=== PATIENT | female | born 1965 | race Two or more races ===

== ENCOUNTER 2017-02-16 22:57 | Emergency (ER) | payer MEDICAID ==
[~2017-02-16] VITALS: Ht 165.1 cm; Wt 90.7 kg
--- NOTE | 2017-02-16 23:58 | NUR ---
PT BIB FAMILY, [facility]BUALT[facility] TO ER BED 9 C/O RIGHT FLANK PAIN SINCE 1999, TODAY. PT ALSO STATES PAIN WITH URINATION. PT AOX4 RR EVEN AND UNLABORED. NO SOB NOTED. NAD NOTED. NO NVD AT THIS TIME. PT GOWNED AND PLACED ON MONITOR WAITING FOR MD PEREZ.
[2017-02-17 00:10] LABS: BASOPHILS % (AUTO) 0.2 % (0.0-2.0); EOSINOPHILS # (AUTO) 0.1 /CMM (0.0-0.7); EOSINOPHILS % (AUTO) 0.7 % (0.0-6.0); HEMATOCRIT 41 % (33-45); HEMOGLOBIN 13.8 g/dL (11.5-14.8); LYMPHOCYTES # (AUTO) 1.6 /CMM (0.8-4.8); LYMPHOCYTES % (AUTO) 11.7 % (20.0-44.0); MEAN CORPUSCULAR HEMOGLOBIN 31 PG (26.0-33.0); MEAN CORPUSCULAR HGB CONC 34 g/dl (31.0-36.0); MEAN CORPUSCULAR VOLUME 91 fL (82-100); MONOCYTES # (AUTO) 0.6 /CMM (0.1-1.30); MONOCYTES % (AUTO) 4.4 % (2.0-12.0); NEUTROPHILS # (AUTO) 11.3 /CMM (1.8-8.9); PLATELET COUNT (AUTO) 361 /CMM (150-450); RED BLOOD CELL COUNT(AUTO) 4.45 MIL/uL (4.0-5.2); WHITE BLOOD COUNT (AUTO) 13.6 K/uL (4.3-11.0)
[2017-02-17 00:12] LABS: APPEARANCE,URINE SL CLOUDY (CLEAR); BILIRUBIN,URINE NEGATIVE (NEGATIVE); BLOOD, URINE 2+ Ery/uL (NEGATIVE); COLOR,URINE YELLOW (YELLOW); KETONES,URINE NEGATIVE (NEGATIVE); LEUKOCYTE ESTERASE ,URINE NEGATIVE (NEGATIVE); NITRITE, URINE NEGATIVE (NEGATIVE); PROTEIN,URINE NEGATIVE (NEGATIVE); UGLUCOSE NEGATIVE (NEGATIVE); UROBILINOGEN,URINE 0.2 EU/dL (0.2)
[2017-02-17 00:21] LABS: ADD URINE CULTURE YES; BACTERIA,URINE 2+ /HPF (None Seen); MUCUS,URINE Moderate /LPF (None Seen); PREGNANCY TEST URINE QUAL NEGATIVE (NEGATIVE); SQUAMOUS EPITHELIAL CELL,UR Moderate /HPF (None Seen); WBC,URINE 0-2 /HPF (0-3)
[2017-02-17 00:28] LABS: CREATININE 0.8 mg/dL (0.6-1.3); POTASSIUM 3.7 mmol/L (3.5-5.1)
--- NOTE | 2017-02-17 01:48 | NUR ---
PT TO CT.
--- NOTE | 2017-02-17 01:56 | NUR ---
PT RETURNED FROM CT.
--- NOTE | 2017-02-17 02:25 | NUR ---
CINNAMON GRINDER MARSII AT BEDSIDE SPEAKING TO PT REGARDING RESULTS.
--- NOTE | 2017-02-17 02:29 | NUR ---
Patient discharged to home in stable condition. Written and verbal after care instructions given. Patient verbalizes understanding of instruction. ambulatory with a steady gait
[2017-02-17 02:30] VITALS: BP 126/78
== END 2017-02-17 02:31 | disposition home or self-care (01) ==
LOC: ER 22:57
DX: R10.9 Unspecified abdominal pain (principal)
CPT/HCPCS: 36415; 80048-TC; 81000-TC; 84703-TC; 85025-TC; A4606; Z7610

== ENCOUNTER 2022-03-14 17:04 | Emergency (ER) | payer MEDICAID ==
[~2022-03-14] VITALS: Ht 167.6 cm; Wt 99.8 kg
--- NOTE | 2022-03-14 17:04 | NUR ---
BIBS C/O COUGH AND CONGESTION THAT WORSENS AT NIGHT. PT BLOOD PRESSURE AND HEART RATE ELEVATED. MD AWARE.
--- NOTE | 2022-03-14 18:56 | NUR ---
RAPID COVID AND FLU TEST COLLECTED AND SENT
[2022-03-14 19:25] LABS: CALCIUM, SERUM 8.8 mg/dL (8.5-10.1); CARBON DIOXIDE 28 mmol/L (21-32); CHLORIDE 102 mmol/L (98-107); CREATININE 0.7 mg/dL (0.6-1.3); GLUCOSE 117 mg/dL (74-106); POTASSIUM 4.1 mmol/L (3.5-5.1); SODIUM SERUM 139 mmol/L (136-145); UREA NITROGEN, BLOOD 10 mg/dL (7-18)
[2022-03-14 19:58] LABS: BASOPHILS % (AUTO) 0.4 % (0.0-2.0); EOSINOPHILS % (AUTO) 1.5 % (0.0-6.0); HEMATOCRIT 44 % (33-45); HEMOGLOBIN 14.5 g/dL (11.5-14.8); LYMPHOCYTES # (AUTO) 1.2 K/uL (0.8-4.8); LYMPHOCYTES % (AUTO) 13.7 % (20.0-44.0); MEAN CORPUSCULAR HGB CONC 33 g/dl (31.0-36.0); MEAN CORPUSCULAR VOLUME 91 fL (82-100); MONOCYTES # (AUTO) 0.5 K/uL (0.1-1.30); MONOCYTES % (AUTO) 5.9 % (2.0-12.0); NEUTROPHILS # (AUTO) 6.9 K/uL (1.8-8.9); NEUTROPHILS % (AUTO) 78.5 % (43.0-81.0); PLATELET COUNT (AUTO) 320 K/uL (150-450); RED BLOOD CELL COUNT(AUTO) 4.79 MIL/uL (4.0-5.2); WHITE BLOOD COUNT (AUTO) 8.8 K/uL (4.3-11.0)
--- NOTE | 2022-03-14 21:49 | NUR ---
Patient does not wish to proceed with medical care recommended by Dr. Powell. Patient given information related to possible complications, up to and including , which could occur as a result of leaving the hospital at this time. Patient verbalizes understanding of risks involved due to leaving against medical advice. Patient has signed AMA form.
[2022-03-14 21:58] VITALS: BP 145/98
== END 2022-03-14 22:16 | disposition left against medical advice (07) ==
LOC: ER 17:09
DX: R05.9 Cough, unspecified (principal); Z20.822 Contact with and (suspected) exposure to COVID-19; R91.8 Other nonspecific abnormal finding of lung field; R79.1 Abnormal coagulation profile; I45.2 Bifascicular block; Z53.29 Procedure and treatment not carried out because of patient's decision for other reasons
CPT/HCPCS: 36415; 71045; 80048; 83880; 84484 ×2; 85025; 85378; 87426; 87804; 93005; 99285; C9803